=== PATIENT | male | born 1980 | race Two or more races ===

== ENCOUNTER 2017-09-30 06:01 | Emergency (ER) | payer BC ==
[2017-09-30 06:50] LABS: ADD MAN DIFF? NO
[2017-09-30 06:52] LABS: BASO % 0 % (0-3); EOS # 0.1 x10^3/uL (0.0-0.7); EOS % 1 % (0-3); HEMATOCRIT 44.5 % (39.0-53.0); HEMOGLOBIN 15.7 g/dL (13.0-17.5); LYMPH # 2.2 x10^3/uL (1.0-4.8); LYMPH % 23 % (24-48); MEAN CORPUSCULAR HEMOGLOBIN 33 pg (25-35); MEAN CORPUSCULAR HGB CONC 35 g/dL (31-37); MEAN CORPUSCULAR VOLUME 93 fL (79-100); MONO # 0.8 x10^3/uL (0.0-1.1); MONO % 9 % (0-9); NEUT # 6.5 x10^3uL (1.8-7.7); NEUT % 67 % (31-73); PLATELET COUNT 231 x10^3/uL (140-400); RED BLOOD COUNT 4.79 x10^6/uL (4.30-5.70); RED CELL DISTRIBUTION WIDTH 12.3 % (11.5-14.5); WHITE BLOOD COUNT 9.7 x10^3/uL (4.0-11.0)
[2017-09-30 06:59] LABS: ANION GAP 5 (6-14); BLOOD UREA NITROGEN 24 mg/dL (8-26); BUN/CREATININE RATIO 22 (6-20); CARBON DIOXIDE 30 mmol/L (21-32); CHLORIDE 103 mmol/L (98-107); CREATININE 1.1 mg/dL (0.7-1.3); GFR 75.7; GLUCOSE 106 mg/dL (70-99); POTASSIUM 3.7 mmol/L (3.5-5.1); SODIUM 138 mmol/L (136-145)
[2017-09-30] MEDS: IV RINGERS,LACTATED 1000ML 1,000 ML IV (07:03)
[2017-09-30 07:05] LABS: ALBUMIN 3.8 g/dL (3.4-5.0); ALBUMIN/GLOBULIN RATIO 0.8 (1.0-1.7); ALK PHOS 113 U/L (46-116); ALT (SGPT) 42 U/L (16-63); AST (SGOT) 20 U/L (15-37); LIPASE 181 U/L (73-393); TOTAL BILIRUBIN 0.5 mg/dL (0.2-1.0); TOTAL PROTEIN 8.4 g/dL (6.4-8.2)
[2017-09-30 07:06] LABS: BILIRUBIN,URINE NEGATIVE (NEG); CLARITY,URINE CLEAR; COLOR,URINE YELLOW; GLUCOSE,URINE NEGATIVE (NEG); NITRITE,URINE NEGATIVE (NEG); PH,URINE 5.5; PROTEIN,URINE NEGATIVE (NEG-TRACE); UROBILINOGEN,URINE 0.2 mg/dL (0.2 mg/dL)
[2017-09-30 07:07] LABS: SQUAMOUS EPITHELIAL CELL,UR FEW /LPF
[2017-09-30 07:08] LABS: BACTERIA,URINE FEW /HPF (0-FEW); RBC,URINE OCC /HPF (0-2)
[2017-09-30] MEDS ORDERED: MORPHINE SULFATE 4 MG/ML DISP.SYRIN. (08:36)
== END 2017-09-30 10:12 | disposition home or self-care (01) ==
LOC: ER 06:01
DX: S02.2XXA Fracture of nasal bones, initial encounter for closed fracture (principal); R10.84 Generalized abdominal pain; R42 Dizziness and giddiness; R11.2 Nausea with vomiting, unspecified; R19.7 Diarrhea, unspecified; K92.1 Melena; W17.89XA Other fall from one level to another, initial encounter; Y93.89 Activity, other specified; Y92.009 Unspecified place in unspecified non-institutional (private) residence as the place of occurrence of the external cause; Y99.8 Other external cause status
CPT/HCPCS: 36415; 70450; 70486; 74018; 80053; 81001; 83690; 85025; 93005; 96360; 96361; 99285-25; J7120